=== PATIENT | female | born 1985 | race Caucasian/White ===

== ENCOUNTER 2017-10-20 08:58 | Inpatient (IN) ==
[2017-10-20] MEDS ORDERED: LACTATED RINGERS 1,000 ML IV ONE (09:23)
[2017-10-20] MEDS ORDERED: ONDANSETRON 4 MG/2 ML VIAL IV PRN ×2 (09:23→16:48)
[2017-10-20] MEDS ORDERED: MEPERIDINE 50 MG/1 ML VIAL IV PRN (09:23)
[2017-10-20] MEDS ORDERED: BUTORPHANOL 1 MG/ML VIAL IV PRN (09:23)
[2017-10-20] MEDS ORDERED: LACTATED RINGERS 1,000 ML IV SCH ×2 (09:30→12:09)
[2017-10-20] MEDS ORDERED: OXYTOCIN/LR 20 UNIT/1,000 ML BAG IV SCH (09:30)
[2017-10-20 09:56] LABS: Basophils % 0.3 % (0.0-0.8); Eosinophils # 0.3 10*3/uL (0.0-0.87); Eosinophils % 2.1 % (0.00-10.9); Hematocrit 38.1 VOL% (35.7-47.0); Hemoglobin 13.6 GM/DL (12.0-16.0); Immature Granulocytes % 0.4 %; Immature Granulocytes Absolute 0.05 #; Lymphocytes # 1.9 10*3/uL (1.4-4.0); Lymphocytes % 16.1 % (21.3-54.2); Mean Corpuscular HGB Conc 35.7 GM/DL (32-36); Mean Corpuscular Hemoglobin 34 PG (27-34); Mean Corpuscular Volume 95.3 FL (87-102); Mean Platelet Volume 11.9 FL (9.6-12.0); Monocytes # 0.7 10*3/uL (0.11-0.8); Monocytes % 5.7 % (1.7-12.7); Neutrophils % 75.4 % (38.7-73.9); Platelet Count 168 T/CUMM (130-400); Red Cell Distribution Width 13.1 % (9.3-17.3); White Blood Count 11.9 T/CUMM (4-12)
[2017-10-20] MEDS ORDERED: diphenhydrAMINE 50 MG/1 ML VIAL IV PRN ×2 (10:31)
[2017-10-20] MEDS ORDERED: PROMETHAZINE 25 MG/1 ML VIAL IM ONE (10:31)
[2017-10-20] MEDS ORDERED: CITRIC ACID/SODIUM CITRATE 30 ML UDCUP PO ONE (10:31)
[2017-10-20] MEDS ORDERED: ePHEDrine 50 MG/ML AMP IV PRN ×2 (10:31)
[2017-10-20] MEDS ORDERED: hydrOXYzine HCL 25 MG/1 ML VIAL IM PRN (10:31)
[2017-10-20] MEDS ORDERED: FAMOTIDINE 20 MG/2 ML VIAL IV ONE (10:31)
[2017-10-20 10:33] LABS: Alanine Aminotransferase 13 U/L (13-56); Albumin 2.7 G/DL (3.4-5.0); Alkaline Phosphatase 98 U/L (45-117); Aspartate Amino Transferase 17 U/L (0-37); Bilirubin,Total < 0.39 MG/DL (0.2-1.0); Blood Urea Nitrogen 15 MG/DL (7-18); Calcium 8.9 MG/DL (8.5-10.1); Glucose 85 MG/DL (74-106); Potassium 3.5 MMOL/L (3.5-5.1); Sodium 136 MMOL/L (136-145); Total Protein 6.3 G/DL (6.4-8.3)
[2017-10-20] MEDS ORDERED: fentaNYL 2 MCG/ROPIV 0.2% EPID 150 ML EPIDURAL SCH (11:00)
[2017-10-20 13:19] LABS: Apearance,Urine CLEAR (Clear); Bacteria,Urine Occasional /HPF (Few); Bilirubin,Urine Negative (Negative); Blood, Urine Negative (Negative); Glucose,Urine (UA) Negative (Negative); Ketones,Urine 20 mg/dL (Negative); Nitrite,Urine Negative (Negative); Protein,Urine Negative; RBC,Urine 1 /HPF (0-4); Urine Color Straw (Yellow); Urine Specific Gravity 1.006 (1.001-1.035); Urine Urobilinogen < 2.0 EU/DL (0.2-1.0); WBC,Urine <1 /HPF (0-6)
[2017-10-20] MEDS ORDERED: LIDOCAINE 1% 50 ML VIAL ONE (15:38)
[2017-10-20] MEDS ORDERED: miSOPROStol 200 MCG TABLET ONE (15:38)
[2017-10-20] MEDS ORDERED: METHYLERGONOVINE 0.2 MG/1 ML AMP ONE (15:39)
[2017-10-20] MEDS ORDERED: WITCH HAZEL PADS 100/JAR TOP PRN (16:48)
[2017-10-20] MEDS ORDERED: HYDROCORTISONE 2.5% RECTAL CREAM 30 GM TUBE TOP PRN (16:48)
[2017-10-20] MEDS ORDERED: MEASLES/MUMPS/RUBELLA VACCINE 0.5 ML VIAL SUBCUT ONE (16:48)
[2017-10-20] MEDS ORDERED: RHO(D) IMMUNE GLOBULIN 300 MCG SYRINGE IM ONE (16:48)
[2017-10-20] MEDS ORDERED: DIPH/TET/ACEL PERT BOOSTER VACCINE 0.5 ML VIAL IM ONE (16:48)
[2017-10-20] MEDS ORDERED: BISACODYL 10 MG SUPP RECTAL PRN (16:48)
[2017-10-20] MEDS ORDERED: BENZOCAINE 20%/MENTHOL 0.5% SPRAY 56 GM CAN TOP PRN (16:48)
[2017-10-20] MEDS ORDERED: OXYTOCIN/LR 20 UNIT/1,000 ML BAG IV ONE (16:48)
[2017-10-20] MEDS ORDERED: LANOLIN 50% CREAM 0.3 OZ TUBE TOP PRN (16:48)
[2017-10-20] MEDS ORDERED: ACETAMINOPHEN 325 MG TABLET PO PRN (16:48)
[2017-10-20] MEDS: IBUPROFEN 800 MG TABLET PO PRN (21:11)
[2017-10-20] MEDS: DOCUSATE SODIUM 100 MG CAPSULE PO SCH (21:11)
[2017-10-20] MEDS: oxyCODONE/ACETAMINOPHEN 5-325 MG TABLET PO PRN (21:12)
[2017-10-21] MEDS: oxyCODONE/ACETAMINOPHEN 5-325 MG TABLET PO PRN ×4 (03:47→21:48)
[2017-10-21] MEDS: IBUPROFEN 800 MG TABLET PO PRN ×4 (03:48→21:50)
[2017-10-21 06:53] LABS: Basophils # 0.1 10*3/uL (0.0-0.2); Basophils % 0.5 % (0.0-0.8); Eosinophils # 0.3 10*3/uL (0.0-0.87); Hematocrit 32.9 VOL% (35.7-47.0); Immature Granulocytes % 0.6 %; Immature Granulocytes Absolute 0.08 #; Lymphocytes # 1.9 10*3/uL (1.4-4.0); Lymphocytes % 13.2 % (21.3-54.2); Mean Corpuscular HGB Conc 34.7 GM/DL (32-36); Mean Corpuscular Hemoglobin 34 PG (27-34); Mean Corpuscular Volume 97.1 FL (87-102); Mean Platelet Volume 12.3 FL (9.6-12.0); Monocytes # 0.9 10*3/uL (0.11-0.8); Monocytes % 6.1 % (1.7-12.7); Neutrophils # 11.1 10*3/uL (1.4-7.4); Neutrophils % 77.6 % (38.7-73.9); Red Blood Count 3.39 MC/CUMM (3.8-5.5); Red Cell Distribution Width 13.2 % (9.3-17.3); White Blood Count 14.3 T/CUMM (4-12)
[2017-10-21 06:55] LABS: Hemoglobin 11.4 GM/DL (12.0-16.0); Platelet Count 122 T/CUMM (130-400)
[2017-10-21] MEDS: DOCUSATE SODIUM 100 MG CAPSULE PO SCH ×2 (09:21→21:48)
[2017-10-22] MEDS: IBUPROFEN 800 MG TABLET PO PRN ×2 (04:05→10:22)
[2017-10-22] MEDS: oxyCODONE/ACETAMINOPHEN 5-325 MG TABLET PO PRN ×2 (04:05→12:00)
[2017-10-22 06:50] LABS: Basophils # 0.1 10*3/uL (0.0-0.2); Basophils % 0.5 % (0.0-0.8); Eosinophils # 0.5 10*3/uL (0.0-0.87); Hematocrit 32.8 VOL% (35.7-47.0); Hemoglobin 11.2 GM/DL (12.0-16.0); Immature Granulocytes % 0.4 %; Immature Granulocytes Absolute 0.05 #; Lymphocytes # 2.4 10*3/uL (1.4-4.0); Lymphocytes % 19.8 % (21.3-54.2); Mean Corpuscular HGB Conc 34.1 GM/DL (32-36); Mean Corpuscular Hemoglobin 33 PG (27-34); Mean Corpuscular Volume 96.8 FL (87-102); Mean Platelet Volume 12.3 FL (9.6-12.0); Monocytes # 0.6 10*3/uL (0.11-0.8); Monocytes % 5.1 % (1.7-12.7); Neutrophils # 8.5 10*3/uL (1.4-7.4); Neutrophils % 70.2 % (38.7-73.9); Platelet Count 142 T/CUMM (130-400); Red Blood Count 3.39 MC/CUMM (3.8-5.5); Red Cell Distribution Width 13.4 % (9.3-17.3); White Blood Count 12.2 T/CUMM (4-12)
[2017-10-22 07:49] LABS: Eosinophils 6 % (0-10); Hypochromasia 1+; Lymphocytes 18 % (20-55); Platelet Estimate Normal; Segmented Neutrophils 74 % (50-85); Total Cells Counted 100
[2017-10-22 08:40] VITALS: BP 94/63
[2017-10-22] MEDS: DOCUSATE SODIUM 100 MG CAPSULE PO SCH (09:07)
== END 2017-10-22 13:40 | disposition home or self-care (01) | DRG 775 ==
LOC: N.LDOUT 08:58 → N.LD 09:03 → N.OB 20:23
PROVIDERS: ADMIT Obstetrics & Gynecology; ATTEND Obstetrics & Gynecology